=== PATIENT | male | born 1950 | race Caucasian/White ===

== ENCOUNTER 2017-11-03 00:25 | Emergency (ER) | payer MEDICARE, OTHER ==
[2017-11-03 00:42] VITALS: BP 154/92; TEMP 98.3; O2SAT 98
--- NOTE | 2017-11-03 00:57 | ED.PDOC ---
History of Present Illness - General Chief Complaint: Problem Stated Complaint: can't urinate since 1999 Time Seen by Provider: 11/03/17 00:54 Source: patient, Vital Signs reviewed Exam Limitations: no limitations Additional Information: 67 year old here with complaints of unable to urinate Last voided at 8 pm now 1 am Had hemorroidectomy today was able to urinate after surgery prior to discharge - History of Present Illness Timing/Duration: 4-6 hours Severity: mild Improving Factors: nothing Associated Symptoms: denies symptoms Allergies/Adverse Reactions: Allergies NO KNOWN ALLERGY Allergy (Verified 11/03/17 00:42) Review of Systems - Review of Systems Constitutional: States: no symptoms reported EENTM: States: no symptoms reported Respiratory: States: no symptoms reported Cardiology: States: no symptoms reported Gastrointestinal/Abdominal: States: abdominal pain Genitourinary: States: see HPI Musculoskeletal: States: no symptoms reported Skin: States: no symptoms reported Neurological: States: no symptoms reported Endocrine: States: no symptoms reported Past Medical History (General) - Patient Medical History Hx Seizures: No Hx Stroke: No Hx Dementia: No Hx Asthma: No Hx of COPD: No Hx Cardiac Disorders: No Hx Congestive Heart Failure: No Hx Pacemaker: No Hx Hypertension: No Hx Thyroid Disease: No Hx Diabetes: No Hx Gastroesophageal Reflux: No Hx Renal Disease: No - Vaccination History Hx Tetanus, Diphtheria Vaccination: Yes Hx Influenza Vaccination: Yes Hx Pneumococcal Vaccination: Yes - Social History Hx Tobacco Use: No Hx Alcohol Use: Yes - 1-2 beers daily Family Medical History - Family History Mother Family History: Unknown Physical Exam - Physical Exam General Appearance: Anxious Eye Exam: bilateral normal Ears, Nose, Throat: hearing grossly normal, normal ENT inspection, normal pharynx Neck: non-tender, full range of motion, supple Respiratory: chest non-tender, lungs clear, normal breath sounds Cardiovascular/Chest: normal peripheral pulses, regular rate, rhythm, no edema, no murmur Gastrointestinal/Abdominal: normal bowel sounds, non tender, soft, no organomegaly, no pulsatile mass Neurologic: no motor/sensory deficits, alert, normal mood/affect, oriented x 3 Skin Exam: normal color, warm/dry Progress - Results/Orders Results/Orders: WILL PLACE A THOMPSON AND LEG BAG THOMPSON RESIDUAL VOLUME 150 CC Departure - Departure Clinical Impression: Acute urinary retention Time of Disposition: 00:58 Disposition: Discharge to Home or Self Care Departure Forms: ED Discharge - Pt. Copy, Patient Portal Self Enrollment Diet: resume usual diet Referrals: Reed Urban MD [Primary Care Provider] - 1-2 Weeks
== END 2017-11-03 01:19 | disposition home or self-care (01) ==
LOC: ER 00:25
DX: R31.9 Hematuria, unspecified (principal)

== ENCOUNTER 2018-01-18 17:29 | Emergency (ER) | payer MEDICARE, OTHER ==
[2018-01-18] MEDS ORDERED: LIDOCAINE 1% 10 ML VIAL INJ ONE (18:05)
--- NOTE | 2018-01-18 18:39 | ED.PDOC ---
History of Present Illness - General Chief Complaint: Laceration Stated Complaint: lip injury Time Seen by Provider: 01/18/18 18:36 Source: patient Exam Limitations: no limitations - History of Present Illness Initial Comments: PT REPORTS PLAYING GOLF WHEN A GOLF BALL HIT HIM IN HIS MOUTH. PT DENIES LOC OR DENTAL INJURY. Timing/Duration: just prior to arrival Severity: mild Location: face Associated Symptoms: denies symptoms Allergies/Adverse Reactions: Allergies NO KNOWN ALLERGY Allergy (Verified 11/03/17 00:42) Home Medications: Ambulatory Orders Duloxetine HCl [Cymbalta] 60 mg PO BID 01/18/18 Trazodone HCl 100 mg PO BEDTIME 01/18/18 Review of Systems - Review of Systems EENTM: States: mouth pain, mouth swelling Cardiology: Denies: palpitations, syncope Gastrointestinal/Abdominal: Denies: nausea, vomiting Neurological: Denies: headache, paresthesia Past Medical History (General) - Patient Medical History Hx Seizures: No Hx Stroke: No Hx Dementia: No Hx Asthma: No Hx of COPD: No Hx Cardiac Disorders: No Hx Congestive Heart Failure: No Hx Pacemaker: No Hx Hypertension: No Hx Thyroid Disease: No Hx Diabetes: No Hx Gastroesophageal Reflux: No Hx Renal Disease: No - Vaccination History Hx Tetanus, Diphtheria Vaccination: - unknown Hx Influenza Vaccination: No Hx Pneumococcal Vaccination: Yes - Social History Hx Tobacco Use: Yes Hx Alcohol Use: Yes - 1-2 beers daily Family Medical History - Family History Mother Family History: Unknown Physical Exam - Physical Exam General Appearance: Alert, No apparent distress, Well Developed, Well Groomed, Well Hydrated Eyes, Ears, Nose, Throat Exam: other - 3CM THROUGH AND THROUGH LACERATION TO THE LEFT UPPER LIP. SMALL SUPERFICIAL LACERATION TO THE GINGIVA OVERLYING THE MIDDLE INSCISORS. Neck: non-tender, full range of motion, supple Respiratory: no respiratory distress Extremity: normal inspection Neurologic: alert, normal mood/affect, oriented x 3 Skin Exam: warm/dry, normal color Skin Problem Location: face Procedures - Laceration/Wound Repair Face Wound's Depth, Shape: irregular Wound Explored: no foreign body removed Betadine Prep?: Yes Anesthesia: 1% Lidocaine Wound Repaired With: sutures Suture Size/Type: 6:0, prolene, fast absorbing gut Layer Closure?: No Departure - Departure Clinical Impression: Laceration Time of Disposition: 19:11 Disposition: Discharge to Home or Self Care Condition: Good Departure Forms: ED Discharge - Pt. Copy, Patient Portal Self Enrollment Instructions: DI for Laceration Repair Referrals: Reed Urban MD [Primary Care Provider] - 1-5 Days Home Medications: Ambulatory Orders Duloxetine HCl [Cymbalta] 60 mg PO BID 01/18/18 Trazodone HCl 100 mg PO BEDTIME 01/18/18
[2018-01-18] MEDS ORDERED: ACETAMINOPHEN 500 MG TAB PO ONE (19:12)
[2018-01-18 19:22] VITALS: BP 159/71; TEMP 97; O2SAT 96
== END 2018-01-18 19:22 | disposition home or self-care (01) ==
LOC: ER 17:29
DX: S01.511A Laceration without foreign body of lip, initial encounter (principal); S01.512A Laceration without foreign body of oral cavity, initial encounter; W21.04XA Struck by golf ball, initial encounter; Y93.53 Activity, golf; Z87.891 Personal history of nicotine dependence; Y92.9 Unspecified place or not applicable

== ENCOUNTER → 2018-01-26 | Outpatient (CLI) | payer MEDICARE, OTHER ==
--- NOTE | 2018-01-26 10:50 | RAD ---
Frontal, lateral, and oblique views of the left hand. Indication:PAIN Comparison: None. Impression: On the lateral view there is suspected overpenetration artifact along the dorsal margins of the bases of the metacarpals which gives the appearance of cortical step-offs. A fracture this site is difficult to exclude. Correlation with point tenderness recommended. 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 Mild changes STT joint. If there is persistent anatomic snuffbox tenderness, repeat wrist imaging to include a scaphoid view is recommended in one week to evaluate for occult scaphoid fracture. Soft tissues are intact without radiopaque foreign body. Electronically signed by: Ravi Burt MD 01/26/2018 10:48 AM CDT
== END ==
LOC: RAD 07:18
PROVIDERS: ATTEND Orthopaedic Surgery
DX: Z01.818 Encounter for other preprocedural examination (principal); M18.9 Osteoarthritis of first carpometacarpal joint, unspecified; M79.642 Pain in left hand

== ENCOUNTER 2018-02-01 09:38 | Day surgery (SDC) | payer MEDICARE, OTHER ==
[2018-02-01] MEDS ORDERED: LACTATED RINGERS 1,000 ML ONE (09:50)
[2018-02-01] MEDS ORDERED: ceFAZolin SODIUM 1 GM VIAL ONE ×2 (09:50→10:16)
[2018-02-01] MEDS ORDERED: SODIUM CHL 0.9% 100ML MINI-BAG 100 ML IVPB ONE (09:50)
[2018-02-01] MEDS ORDERED: PROPOFOL 200 MG/20 ML VIAL IV ONE (10:00)
[2018-02-01] MEDS ORDERED: LIDOCAINE 1% 10 ML VIAL INJ ONE ×2 (10:00→10:16)
[2018-02-01] MEDS ORDERED: BUPIVACAINE 0.25% INJ 30 ML VIAL INJ ONE (10:16)
[2018-02-01] MEDS ORDERED: VANCOMYCIN HCL INJ 1,000 MG VIAL IVPB ONE (10:16)
[2018-02-01] MEDS ORDERED: MIDAZOLAM INJ 2 MG/2 ML VIAL ONE (10:35)
[2018-02-01 13:13] VITALS: BP 143/90; TEMP 97.2; O2SAT 98
--- NOTE | 2018-02-06 08:03 | OP ---
DATE OF PROCEDURE: 02/01/18 PREOPERATIVE DIAGNOSIS: 1. Benign mass of the right hand. POSTOPERATIVE DIAGNOSIS: 1. Benign mass of the right hand. PROCEDURE: 1. Excision of mass. SURGEON: Robe Verduzco MD. DIRECTOR OF COUNSELING: Vinnie Thomas CST, SA-C. ANESTHESIA: Local with sedation. COMPLICATIONS: None. FINDINGS: Benign mass measuring approximately 1 x 0.5 cm. INDICATION: Mr. Yanez has a long history of a mass on the dorsum of the hand. He is not sure when it arose and if there was any trauma associated with this. It caused very minimal pain. Because of the mass that is present, he did request operative intervention. We discussed the risks, benefits and alternatives to excision and informed consent was obtained. PROCEDURE: The patient was brought to the Operating Room and placed in supine position. Sedation was administered and local anesthetic was injected into the operative area. Following injection of local anesthetic, the arm was sterilely prepped and draped. Following prepping and draping, an elliptical incision was made around the mass and the mass was removed in its entirety. There appeared to be clear margins all around without any evidence of remaining soft tissue abnormality. Following that, the wound was very thoroughly irrigated and closed with Nylon suture. Sterile dressing was placed. The patient was taken to the Day Surgery Unit. POSTOPERATIVE PLAN: He is going to be doing range of motion of the digits and will followup with us in two days. #[id number] [facility]
== END 2018-02-01 13:48 | disposition home or self-care (01) ==
LOC: AMB 09:38
PROVIDERS: ATTEND Orthopaedic Surgery
DX: L72.0 Epidermal cyst (principal); Z79.899 Other long term (current) drug therapy
CPT/HCPCS: 01840; 26115; 88304; J0690; J2250; J3370; J3490; J7050; J7120

== ENCOUNTER → 2019-05-24 | Outpatient (CLI) | payer MEDICARE, OTHER ==
--- NOTE | 2019-05-24 12:58 | RAD ---
EXAM DESCRIPTION: Wrist,Right 3 Views CLINICAL HISTORY: FX OF RADIAL STYLOID COMPARISON: None. TECHNIQUE: 3 views right FINDINGS: Exam demonstrates avulsion of the ulnar styloid process. A radial styloid fracture is observed with minimal distraction of the fracture fragments. The fracture extends into the joint surface and is longitudinally oriented. No carpal injury is detected. IMPRESSION: Fractures of the ulnar and radial styloid process is observed. Electronically signed by: Rip Hyde MD 05/24/2019 12:56 PM [facility]
== END ==
LOC: RAD 07:56
PROVIDERS: ATTEND Orthopaedic Surgery
DX: S52.514D Nondisplaced fracture of right radial styloid process, subsequent encounter for closed fracture with routine healing (principal); S52.614D Nondisplaced fracture of right ulna styloid process, subsequent encounter for closed fracture with routine healing

== ENCOUNTER → 2019-06-25 | Outpatient (CLI) | payer MEDICARE, OTHER | DX: S52.514D Nondisplaced fracture of right radial styloid process, subsequent encounter for closed fracture with routine healing (principal); S52.614D Nondisplaced fracture of right ulna styloid process, subsequent encounter for closed fracture with routine healing; S63.07 Subluxation and dislocation of distal end of ulna ==

== ENCOUNTER → 2019-07-26 | Outpatient (CLI) | payer MEDICARE, OTHER ==
--- NOTE | 2019-07-26 08:15 | RAD ---
EXAM DESCRIPTION: Wrist,Right 3 Views CLINICAL HISTORY: 68 years, Male, RADIAL STYLOID FX COMPARISON: June 25, 2019, June 04, 2019, May 24, 2019 TECHNIQUE: AP/ lateral/ oblique views of the right wrist. FINDINGS: Three views of the right wrist show persistent anatomic osseous alignment of the radial styloid fracture that extends intra-articular with less lucency particularly in comparison to remote studies through the fracture line but complete bony union not apparent. Slight progression of endosteal healing is evident in comparison to remote May examination. Slightly distracted ulnar styloid fracture is unchanged with no evidence of osseous union. The current lateral projection of the wrist as well as previous examinations demonstrate a dorsal position of the distal ulna. Possibility of distal radial ulnar dorsal subluxation or partial dislocation would be a consideration. Consider CT examination of the wrist for alignment of the distal radial ulnar joint as well as assessment of the degree of endosteal healing of the distal radial fracture. IMPRESSION: 1. Anatomically aligned but incompletely healed fracture of the distal radial styloid with decreasing lucency but complete healing not yet apparent. 2. Mildly avulsed ulnar styloid fracture without evidence of bony union. 3. Dorsal alignment of the distal ulna on the lateral view, suggesting a possible dorsal subluxation or early dislocation at the distal radial ulnar joint. Consider CT examination to evaluate this alignment as well as endosteal healing of the distal radius. Electronically signed by: Guevara Obrien MD 07/26/2019 8:14 AM CDT
== END ==
LOC: RAD 07:45
PROVIDERS: ATTEND Orthopaedic Surgery
DX: S52.514D Nondisplaced fracture of right radial styloid process, subsequent encounter for closed fracture with routine healing (principal)

== ENCOUNTER → 2019-12-03 | Outpatient (CLI) | payer MEDICARE, OTHER | END | disposition home or self-care (01) | LOC: LAB.O 08:26 | PROVIDERS: ATTEND Orthopaedic Surgery | DX: Z01.818 Encounter for other preprocedural examination (principal) ==

== ENCOUNTER 2020-01-02 05:21 | Day surgery (SDC) | payer MEDICARE, OTHER ==
[2020-01-02] MEDS ORDERED: SODIUM CHL 0.9% 100ML MINI-BAG 100 ML IVPB ONE (06:08)
[2020-01-02] MEDS ORDERED: ceFAZolin SODIUM 1 GM VIAL ONE ×2 (06:08→06:42)
[2020-01-02] MEDS: LACTATED RINGERS 1,000 ML ONE ×2 (06:15→11:52)
[2020-01-02] MEDS ORDERED: VANCOMYCIN HCL INJ 1,000 MG VIAL IVPB ONE ×2 (06:42→10:08)
[2020-01-02] MEDS ORDERED: BUPIVACAINE 0.5% 30 ML VIAL INJ ONE ×3 (06:43→10:08)
[2020-01-02] MEDS ORDERED: BUPIVACAINE LIPOSOME 13.3 MG/ML VIAL INJ ONE ×3 (06:43→10:08)
[2020-01-02] MEDS ORDERED: LIDOCAINE 1% 10 ML VIAL INJ ONE (07:00)
[2020-01-02] MEDS ORDERED: DEXAMETHASONE INJ 10 MG/ML VIAL ONE (07:00)
[2020-01-02] MEDS ORDERED: SODIUM CHLORIDE 0.9% 50 ML VIAL ONE (07:00)
[2020-01-02] MEDS ORDERED: MAGNESIUM SULFATE INJ 1 GM/2 ML VIAL ONE (07:00)
[2020-01-02] MEDS ORDERED: GLYCOPYRROLATE 0.2 MG/ML VIAL ONE (07:00)
[2020-01-02] MEDS ORDERED: ePHEDrine SULF 50 MG/ML ONE (07:00)
[2020-01-02] MEDS ORDERED: PROPOFOL 200 MG/20 ML VIAL IV ONE (07:00)
[2020-01-02] MEDS ORDERED: MIDAZOLAM INJ 2 MG/2 ML VIAL ONE (09:38)
[2020-01-02] MEDS ORDERED: ceFAZolin SODIUM 1 GM VIAL IRRIG ONE (10:08)
[2020-01-02] MEDS ORDERED: KETAMINE HCL 100 MG/ML VIAL ONE (10:16)
[2020-01-02] MEDS ORDERED: DEXMEDETOMIDINE HCL 200 MCG/2 ML INJ IV ONE (10:16)
[2020-01-02] MEDS ORDERED: FAMOTIDINE 10 MG/ML ML IV ONE (10:42)
[2020-01-02] MEDS ORDERED: HYDROmorphone HCL INJ 2 MG/ML VIAL ONE (10:42)
[2020-01-02 13:22] VITALS: BP 124/77; TEMP 97.6; O2SAT 97
--- NOTE | 2020-01-04 08:59 | OP ---
DATE OF PROCEDURE: 01/02/20 PREOPERATIVE DIAGNOSIS: 1. Ulnar nerve entrapment. POSTOPERATIVE DIAGNOSIS: 1. Ulnar nerve entrapment. PROCEDURE: 1. Ulnar nerve transposition. SURGEON: Robe Verduzco MD. GROUP HOME COUNSELOR: Vinnie Thomas CST, SA-C. ANESTHESIA: General anesthesia. COMPLICATIONS: None. FINDINGS: Narrowing of the ulnar nerve across the cubital tunnel. There was subluxation of the nerve over the medial condyle without gross displacement. INDICATION: Mr. Yanez has a history of symptoms consistent with cubital tunnel syndrome. Rip and Roosevelt had talked about options for him and after discussing the risks, benefits and alternatives to operative intervention, the patient gave informed consent for ulnar nerve transposition. PROCEDURE: The patient was brought to the Operating Room and placed in the supine position. General anesthesia was induced and the patient's arm was sterilely prepped and draped. An incision was made midway between the medial epicondyle and olecranon. Blunt dissection was carried down to the nerve which was identified proximally. Vessel loop was passed around the nerve and it was used to manipulate the nerve in an atraumatic fashion. Subsequent to that, the nerve was released from proximal to distal. The soft tissues overlying the medial epicondyle were elevated and the nerve was transposed. The wound was irrigated and then the soft tissues on the subcutaneous tissue were reapproximated to the medial epicondyle forming a pocket for the nerve. The skin was closed with combination of running and interrupted subcuticular stitches. Sterile dressings were placed. The patient was placed in a splint, awoken from anesthesia and taken to Recovery. POSTOPERATIVE PLAN: The patient has been encouraged to do range of motion of the digits. He will followup with us in two days. #[id number] [facility]
== END 2020-01-02 13:15 | disposition home or self-care (01) ==
LOC: AMB 05:21
PROVIDERS: ATTEND Orthopaedic Surgery
DX: G56.22 Lesion of ulnar nerve, left upper limb (principal); M19.029 Primary osteoarthritis, unspecified elbow; Z79.899 Other long term (current) drug therapy; Z79.1 Long term (current) use of non-steroidal anti-inflammatories (NSAID)
CPT/HCPCS: 01710; 64718; 80307; A4216; J0690; J1100; J1170; J2250; J3370; J3475; J3490; J7050; J7120

== ENCOUNTER → 2020-02-20 | Outpatient (CLI) | payer MEDICARE, OTHER ==
--- NOTE | 2020-02-21 10:11 | CT ---
EXAM DESCRIPTION: Chest w/o Contrast CLINICAL HISTORY: COVID 19 COMPARISON: None available TECHNIQUE: Chest CT was performed without IV contrast. This exam was performed according to our departmental dose-optimization program, which includes automated exposure control, adjustment of the mA and/or kV according to patient size and/or use of iterative reconstruction technique. FINDINGS: The thyroid and thoracic inlet are unremarkable. No thoracic aortic aneurysm. No esophageal wall thickening. No pleural or pericardial effusion. The main pulmonary artery is not dilated. Limited sensitivity for detection of adenopathy due to lack of IV contrast, no mediastinal or hilar adenopathy is seen. The central airways are clear. Small patchy areas of groundglass density in both lungs consistent with provided history of Covid19 pneumonia. No additional airspace consolidation. No lung mass. Visualized portions of the upper abdomen are unremarkable for noncontrast technique. IMPRESSION: Small patchy areas of groundglass density in both lungs consistent with provided history of Covid19 pneumonia. No additional intrathoracic abnormality. Electronically signed by: Brent Crabtree MD 02/21/2020 10:[address] [facility]
== END ==
LOC: CT 15:28
PROVIDERS: ATTEND Family Medicine
DX: U07.1 COVID-19 (principal)

== ENCOUNTER → 2020-02-20 | Outpatient (CLI) | payer MEDICARE, OTHER | LOC: GMAJ 15:30 | PROVIDERS: ATTEND Family Medicine | DX: U07.1 COVID-19 (principal) ==

== ENCOUNTER 2020-02-21 14:51 | Emergency (ER) | payer MEDICARE, OTHER ==
--- NOTE | 2020-02-21 15:51 | RAD ---
EXAM DESCRIPTION: Chest,1 View CLINICAL HISTORY: COVID, cough COMPARISON: Chest CT dated February 20, 2020 TECHNIQUE: One view radiograph of the chest FINDINGS: Cardiac silhouette shows normal heart size. Pulmonary vascularity is within normal limits. Previously demonstrated small patchy hazy groundglass opacities in the peripheral aspect of the bilateral lungs are not well demonstrated on this chest radiograph, and better characterized on comparison chest CT of February 20, 2020. No pleural effusion. No pneumothorax. No acute osseous abnormality. IMPRESSION: Previously demonstrated subtle hazy groundglass opacities in the peripheral aspect of the bilateral lungs are not well demonstrated on this chest radiograph, and better characterized on comparison chest CT of February 20, 2020. Electronically signed by: Rip Shepherd MD 02/21/2020 3:50 PM [facility]
--- NOTE | 2020-02-21 16:09 | ED.PDOC ---
History of Present Illness - General Chief Complaint: Respiratory Problem Time Seen by Provider: 02/21/20 15:21 Source: patient Exam Limitations: no limitations - History of Present Illness Initial Comments: Patient is a 69-year-old male presented emergency room secondary to slightly worsening cough. The patient was diagnosed with coronavirus a little less than a week ago. He saw his primary care doctor yesterday and had just started taking some oral steroid and oral azithromycin today. He has been wearing his pulse oximeter fairly continuously and was occasionally getting oxygen saturations dropping down below 94%. Lung jackson do show some mild rhonchi but good air movement. He is not in respiratory distress. Oxygen saturations here range from 93 to 98% on room air. He is pleasant and cooperative. He had a CT scan of the chest yesterday showing very mild light scattered opacities in the lung field consistent with coronavirus. Chest x-ray here today shows no obvious worsening of the that. Timing/Duration: 1 week, getting worse Severity: mild, moderate Improving Factors: nothing Worsening Factors: nothing Associated Symptoms: cough Allergies/Adverse Reactions: Allergies NO KNOWN ALLERGY Allergy (Verified 12/31/19 10:45) Home Medications: Ambulatory Orders Duloxetine HCl [Cymbalta] 60 mg PO BID 01/18/18 Trazodone HCl [Trazodone Hydrochloride] 100 mg PO BEDTIME 01/18/18 Albuterol Inhaler [Ventolin Hfa Inhaler] 3 puff INH Q4H PRN #1 inh 02/21/20 Review of Systems - Review of Systems Constitutional: States: no symptoms reported EENTM: States: nose congestion Respiratory: States: cough Cardiology: States: no symptoms reported Gastrointestinal/Abdominal: States: no symptoms reported Genitourinary: States: no symptoms reported Musculoskeletal: States: no symptoms reported Skin: States: no symptoms reported Neurological: States: no symptoms reported Endocrine: States: no symptoms reported Past Medical History (General) - Patient Medical History Hx Seizures: No Hx Stroke: No Hx Dementia: No Hx Asthma: No Hx of COPD: No Hx Cardiac Disorders: No Hx Congestive Heart Failure: No Hx Pacemaker: No Hx Hypertension: No Hx Thyroid Disease: No Hx Diabetes: No Hx Gastroesophageal Reflux: No Hx Renal Disease: No Hx MRSA: No - Vaccination History Hx Tetanus, Diphtheria Vaccination: - unknown Hx Influenza Vaccination: No Hx Pneumococcal Vaccination: Yes - Social History Hx Tobacco Use: Yes Hx Alcohol Use: Yes - 1-2 beers daily Family Medical History - Family History Mother Family History: Unknown Physical Exam - Physical Exam General Appearance: Alert, Comfortable, No apparent distress Eye Exam: bilateral normal Ears, Nose, Throat: hearing grossly normal, normal pharynx Neck: full range of motion, supple Respiratory: no respiratory distress, no accessory muscle use, other - See history of present illness Cardiovascular/Chest: normal peripheral pulses, regular rate, rhythm, no edema Peripheral Pulses: radial,right: 2+, radial,left: 2+ Gastrointestinal/Abdominal: non tender, soft Rectal Exam: deferred Extremity: normal range of motion, no pedal edema, normal capillary refill Neurologic: naturopathic oncology provider II-XII nml as tested, alert, normal mood/affect, oriented x 3 Skin Exam: normal color Progress - Progress Progress: 02/21/20 16:09 The patient is a 69-year-old male presented emergency room secondary to concern over coronavirus infection. The patient does have a mild coronavirus pulmonary infection at this point. No evidence of hypoxia here on our pulse oximeters. The patient is to continue to take the antibiotic and oral steroid written by his primary care doctor. He is just getting started on those doses. I will additionally write him for an albuterol inhaler for him to try as there is some questionable distant history of mild asthma. He obviously needs to return to the emergency room for any significant worsening. Chest x-ray was reassuring. Follow-up with primary care doctor. sigrid anderson [id number] - Results/Orders Results/Orders: Chest x-ray shows no evidence of any worsening of the coronavirus infection. See report for details. Departure - Departure Clinical Impression: Pneumonia due to human coronavirus Disposition: Discharge to Home or Self Care Condition: Fair Departure Forms: ED Discharge - Pt. Copy, Patient Portal Self Enrollment Diet: regular diet Activity: increase activity as tolerated Referrals: Reed Urban MD [Primary Care Provider] - 1-2 Weeks Prescriptions: Albuterol Inhaler [Ventolin Hfa Inhaler] 3 puff INH Q4H PRN #1 inh PRN Reason: Shortness Of Breath Home Medications: Ambulatory Orders Duloxetine HCl [Cymbalta] 60 mg PO BID 01/18/18 Trazodone HCl [Trazodone Hydrochloride] 100 mg PO BEDTIME 01/18/18 Albuterol Inhaler [Ventolin Hfa Inhaler] 3 puff INH Q4H PRN #1 inh 02/21/20 Additional Instructions: The patient is a 69-year-old male presented emergency room secondary to concern over coronavirus infection. The patient does have a mild coronavirus pulmonary infection at this point. No evidence of hypoxia here on our pulse oximeters. The patient is to continue to take the antibiotic and oral steroid written by his primary care doctor. He is just getting started on those doses. I will additionally write him for an albuterol inhaler for him to try as there is some questionable distant history of mild asthma. He obviously needs to return to the emergency room for any significant worsening. Chest x-ray was reassuring. Follow-up with primary care doctor. He is of course to continue isolating.
[2020-02-21 16:39] VITALS: BP 125/73; TEMP 98.8; O2SAT 97
== END 2020-02-21 16:39 | disposition home or self-care (01) ==
LOC: ER 14:51
DX: U07.1 COVID-19 (principal); J12.89 Other viral pneumonia; Z79.899 Other long term (current) drug therapy; Z87.891 Personal history of nicotine dependence